=== PATIENT | male | born 1960 | race Caucasian/White ===

== ENCOUNTER 2019-12-07 00:26 | Emergency (ER) | payer OTHER ==
--- NOTE | 2019-12-07 00:54 | ED Physician Documentation ---
PD HPI BACK PAIN - Stated complaint Stated Complaint: BACK PX - Chief complaint Chief Complaint: Back Pain - History obtained from History obtained from: Patient - History of Present Illness Timing - onset: Yesterday Timing - details: Gradual onset Location: Lower, Right Quality: Pain, Spasm Associated symptoms: No: Fever, Weakness, Numbness, Incontinent of urine, Unable to urinate, Hematuria, Incontinent of stool Improves with: Rest Worsened by: Movement (distinctly worse with movement) Contributing factors: No: Trauma, Cancer, IVDA Similar symptoms before: Has not had sx before Recently seen: Not recently seen - Additional information Additional information: was doing yardwork 2 days ago with some heavy lifting involved, woke yesterday morning with right low back pain that radiates down right buttock to right knee, occasionally around lateral aspect of thigh. Pain is distinctly worse with movement. Review of Systems Constitutional: denies: Fever, Chills, Sweats GI: denies: Abdominal Pain, Nausea, Vomiting, Constipation, Diarrhea : denies: Dysuria, Frequency, Unable to Void, Incontinent, Hematuria Skin: denies: Rash Musculoskeletal: reports: Back pain Neurologic: denies: Focal weakness, Numbness PD PAST MEDICAL HISTORY - Past Medical History Cardiovascular: None Respiratory: None GI: None : None Psych: None Musculoskeletal: None Derm: None - Past Surgical History Past Surgical History: No - Present Medications Home Medications: Ambulatory Orders Medication Instructions Recorded Confirmed Multivitamin [Multivitamins] 1 each PO 10/05/12 10/05/12 Cyclobenzaprine [Flexeril] 10 mg PO TID PRN #20 tablet 12/07/19 Meloxicam [Mobic] 7.5 mg PO BID PRN #20 tablet 12/07/19 Oxycodone HCl/Acetaminophen 1 - 2 each PO Q6H PRN #14 tablet 12/07/19 [Percocet 5-325 mg Tablet] - Allergies Allergies/Adverse Reactions: Allergies Allergy/AdvReac Type Severity Reaction Status Date / Time No Known Drug Allergies Allergy Verified 10/05/12 03:49 - Social History Does the pt smoke?: No Smoking Status: Never smoker Does the pt drink ETOH?: Yes - Immunizations Immunizations are current?: Yes PD ED PE NORMAL - Vitals Vital signs reviewed: Yes - General General: Alert and oriented X 3, No acute distress, Well developed/nourished - Back Back: No CVA TTP, No spinal TTP - Derm Derm: Normal color, Warm and dry, No rash - Extremities Extremities: No edema - Neuro Neuro: No motor deficit (RLE: 5/5 dorsi/plantarflexion, 2+/4 DTR patella without clonus) Results - Vitals Vitals: Vital Signs - 24 hr 12/07/19 12/07/19 00:37 01:24 Temperature 36.4 C L Heart Rate 62 67 Respiratory 20 18 Rate Blood Pressure 154/85 H 133/82 H O2 Saturation 99 100 Oxygen O2 Source Room air PD MEDICAL DECISION MAKING - ED course Complexity details: reviewed results, re-evaluated patient, considered differential, d/w patient Departure - Departure Disposition: Home, Self Care Clinical Impression: Sciatica Qualifiers: Laterality: right Qualified Code(s): M54.31 - Sciatica, right side Condition: Good Instructions: ED Sciatica Follow-Up: Jerardo Riley MD [Primary Care Provider] - Within 1 week Prescriptions: Cyclobenzaprine [Flexeril] 10 mg PO TID PRN #20 tablet PRN Reason: Spasms Meloxicam [Mobic] 7.5 mg PO BID PRN #20 tablet PRN Reason: Pain Oxycodone HCl/Acetaminophen [Percocet 5-325 mg Tablet] 1 - 2 each PO Q6H PRN #14 tablet PRN Reason: pain Discharge Date/Time: 12/07/19 01:32
[2019-12-07] MEDS ORDERED: KETOROLAC 60 MG/2 ML VIAL IM STA (01:14)
[2019-12-07] MEDS ORDERED: HYDROcod/ACET 5/325 Prepack 4 PO STA (01:14)
[2019-12-07] MEDS ORDERED: CYCLOBENZAPRINE 10 MG Prepack 2 PO PRN (01:14)
[2019-12-07 01:25] VITALS: BP 133/82
== END 2019-12-07 01:32 | disposition home or self-care (01) ==
LOC: ED 00:26
DX: M54.31 Sciatica, right side (principal)
CPT/HCPCS: 96372; 99283; 99284

== ENCOUNTER 2019-12-07 05:39 | Emergency (ER) | payer OTHER ==
--- NOTE | 2019-12-07 05:45 | ED Physician Documentation ---
PD HPI BACK PAIN - Stated complaint Stated Complaint: BACK PX - History obtained from History obtained from: Patient - History of Present Illness Timing - onset: Yesterday Timing - duration: Days Timing - details: Gradual onset, Constant, Waxing and waning Pain level now: 8 Location: Lower, Right Quality: Pain Improves with: Rest Worsened by: Movement Recently seen: Emergency Dept - Additional information Additional information: T+R from this ED few hours ago for same, was given vicodin and flexeril take- home and toradol IM in ED. He c/o back pain that started yesterday, right lower back radiates to right buttock and right posterolateral thigh, distinctly worse with movement. Returns due to worsening pain that is now concentrated in area of right anterolateral thigh. Denies fever, numbness, weakness, loss of bowel/bladder continence. Review of Systems Constitutional: denies: Fever, Chills, Sweats Skin: denies: Rash Musculoskeletal: reports: Back pain. denies: Extremity swelling Neurologic: denies: Focal weakness, Numbness PD PAST MEDICAL HISTORY - Past Medical History Cardiovascular: None Respiratory: None GI: None : None Psych: None Musculoskeletal: None Derm: None - Past Surgical History Past Surgical History: No - Present Medications Home Medications: Ambulatory Orders Medication Instructions Recorded Confirmed Multivitamin [Multivitamins] 1 each PO 10/05/12 10/05/12 Cyclobenzaprine [Flexeril] 10 mg PO TID PRN #20 tablet 12/07/19 Meloxicam [Mobic] 7.5 mg PO BID PRN #20 tablet 12/07/19 Oxycodone HCl/Acetaminophen 1 - 2 each PO Q6H PRN #14 tablet 12/07/19 [Percocet 5-325 mg Tablet] diazePAM [Diazepam] 5 mg PO TID PRN #14 tablet 12/07/19 - Allergies Allergies/Adverse Reactions: Allergies Allergy/AdvReac Type Severity Reaction Status Date / Time No Known Drug Allergies Allergy Verified 12/07/19 05:44 - Social History Does the pt smoke?: No Smoking Status: Never smoker Does the pt drink ETOH?: Yes - Immunizations Immunizations are current?: Yes PD ED PE NORMAL - Vitals Vital signs reviewed: Yes - General General: Alert and oriented X 3, No acute distress (NAD at rest but appears to have painful distress with movement involving lower back and/or RLE), Well developed/nourished - Abdomen Abdomen: Soft, Non tender - Back Back: No CVA TTP, No spinal TTP - Derm Derm: Normal color, Warm and dry, No rash - Extremities Extremities: No deformity, No tenderness to palpate, Normal ROM s pain, No edema - Neuro Neuro: No motor deficit (5/5 RLE extension (psoas, at hip), as well as dorsi/plantarflexion. 2+/4 right DTR patella), No sensory deficit Results - Vitals Vitals: Vital Signs - 24 hr 12/07/19 12/07/19 12/07/19 05:45 06:34 07:33 Temperature 37.1 C Heart Rate 65 62 59 L Respiratory 20 16 20 Rate Blood Pressure 134/73 H 137/85 H 143/84 H O2 Saturation 97 97 100 Oxygen O2 Source Room air - Rads (name of study) lumbar xrays Radiology: Prelim report reviewed, See rad report PD MEDICAL DECISION MAKING - ED course Complexity details: reviewed results, re-evaluated patient, considered differential, d/w patient ED course: adequate relief with IM dilaudid. Given dose of valium PO prior to d/c to augment affect of dilaudid as well as for skeletal muscle relaxant effect. Departure - Departure Disposition: 01 Home, Self Care Clinical Impression: Sciatica Condition: Good Instructions: ED Sciatica Follow-Up: KRISSY SKINNER MD [Primary Care Provider] - Within 1 week Prescriptions: diazePAM [Diazepam] 5 mg PO TID PRN #14 tablet PRN Reason: Spasms Discharge Date/Time: 12/07/19 07:37
[2019-12-07] MEDS ORDERED: DEXAMETHASONE 10 MG/ML VIAL PO STA (05:58)
[2019-12-07] MEDS ORDERED: HYDROmorphone 1 MG/ML CARPUJECT IM STA (05:58)
[2019-12-07] MEDS ORDERED: CHERRY SYRUP 10 ML UDC PO ONE (05:58)
[2019-12-07] MEDS ORDERED: diazePAM 5 MG TABLET PO STA (07:22)
[2019-12-07 07:33] VITALS: BP 143/84
--- NOTE | 2019-12-07 08:17 | XRAY Report ---
PROCEDURE: Lumbar Spine 2 View INDICATIONS: low back pain TECHNIQUE: 3 views of the lumbar spine were acquired. COMPARISON: None. FINDINGS: Bones: 5 [id number] vertebrae are present. There is normal bony alignment. No vertebral body compression fractures. No suspicious bony lesions. Moderate L1-L2 and L5-S1 degenerative disc disea se. Mild L2-L3 degenerative disease. Soft tissues: Overlying bowel gas pattern is normal. No suspicious soft tissue calcifications. IMPRESSION: 1. Multilevel degenerative disc disease. 2. No fracture. No acute osseous lesion. If there is continued clinical concern for pathology, then M RI should be considered for further evaluation. Reviewed by: Serena Mitchell MD, PhD on 12/07/2019 8:15 AM PDT Approved by: Serena Mitchell MD, PhD on 12/07/2019 8:15 AM PDT Station ID: [id number]
== END 2019-12-07 07:37 | disposition home or self-care (01) ==
LOC: ED 05:39
DX: M54.31 Sciatica, right side (principal)
CPT/HCPCS: 72100; 96372; 99283; 99284; A9270; J1170

== ENCOUNTER 2019-12-24 07:12 | Outpatient (CLI) | payer OTHER ==
[2019-12-24] MEDS ORDERED: GADOBUTROL 10 MMOL/10 ML VIAL ONE (07:28)
[2019-12-24] MEDS ORDERED: GADOBUTROL 10 MMOL/10 ML VIAL IVP ONE (08:09)
--- NOTE | 2019-12-26 09:56 | MRI Report ---
PROCEDURE: Lumbar Spine W/WO INDICATIONS: LOW BACK PAIN CONTRAST: IV CONTRAST: Gadavist ml: 8 TECHNIQUE: Noncontrast sagittal T1 spin echo and T2 fast spin echo, sagittal STIR, axial T1 and T2 fast spin ech o through the lumbar spine. In cases with scoliosis, additional coronal T2 fast spin echo may be per formed. After the administration of contrast, sagittal and axial T1 spin echo with fat saturation th rough the lumbar spine. COMPARISON: None. FINDINGS: Image quality: Excellent. Alignment and curvature: Straightening of usual lumbar lordosis. Otherwise in normal alignment. Verte bral body heights maintained of the abdomen Schmorl nodes at the inferior L1 endplate. Marrow: No suspicious focal marrow signal abnormality. Mild edematous marrow signal change at the opp osing L5-S1 endplates. No abnormal enhancement in the vertebral column. Spinal cord: Normal position and appearance of the conus. No abnormal enhancement within the intradur al compartment. Regional soft tissues: Prevertebral and paraspinous soft tissues demonstrate no abnormal signal or en hancement. T12-L1: No spinal canal or neural foraminal stenosis. L1-L2: No spinal canal or neural foraminal stenosis. L2-L3: No spinal canal or neural foraminal stenosis. L3-L4: There is diffuse disc bulge which flattens the ventral thecal sac but produces no mass effect upon the traversing L4 nerve roots. There is a disc extrusion within the right foraminal and far late ral zones producing severe neural foraminal stenosis with displacement and compression/flattening of the exiting right L3 nerve root. There is also mass effect upon the right L3 nerve lateral to the for amen. No left neural foraminal stenosis. L4-L5: Disc bulge flattens the ventral thecal sac without mass effect upon the traversing L5 nerve roots. Foraminal components of the disc bulge combine with facet hypertrophy to produce mild bilatera l neural foraminal stenosis. L5-S1: Diffuse disc bulge and a superimposed broad-based posterior disc protrusion. This material a buts but does not significantly displace the descending S1 nerve roots bilaterally. Mild bilateral ne ural foraminal stenosis related to foraminal components of the disc bulge. IMPRESSION: Large disc extrusion at L3-L4 and within the right foraminal and far lateral zones producing severe r ight neural foraminal stenosis with compression and probable impingement of the right L3 nerve root. Correlate for any corresponding radicular symptoms. Reviewed by: Kadeem Bro MD on 12/26/2019 9:55 AM PDT Approved by: Kadeem Bro MD on 12/26/2019 9:55 AM PDT Station ID: [id number]
== END 2019-12-24 07:13 | disposition home or self-care (01) ==
LOC: DI 07:12
PROVIDERS: ATTEND Student in an Organized Health Care Education/Training Program
DX: M51.35 Other intervertebral disc degeneration, thoracolumbar region (principal); M51.26 Other intervertebral disc displacement, lumbar region
CPT/HCPCS: 72158; A9585

== ENCOUNTER 2020-02-03 13:32 | Outpatient (CLI) | payer OTHER ==
--- NOTE | 2020-02-03 15:40 | XRAY Report ---
PROCEDURE: Lumbar Spine w/Flex/Ext INDICATIONS: LUMBAR RADICULOPATHY TECHNIQUE: 3 views of the lumbar spine acquired. COMPARISON: 12/07/2019. FINDINGS: Bones: 5 [id number] vertebrae are present. There is normal bony alignment. Degenerative endpl ate changes throughout lumbar spine is seen more prominent at L1-2 and L5-S1 levels No vertebral body compression fractures. No suspicious bony lesions. Soft tissues: Overlying bowel gas pattern is normal. No suspicious soft tissue calcifications. Flexion/extension: There is decreased range of motion, with preserved lumbar spine alignment. IMPRESSION: Degenerative disc disease in lumbar spine as above. No acute compression fracture or spo ndylolisthesis. Decreased range of motion with preserved lumbar spine alignment. Reviewed by: Valdemar Umanzor MD on 02/03/2020 3:38 PM PDT Approved by: Valdemar Umanzor MD on 02/03/2020 3:38 PM PDT Station ID: [id number]
== END 2020-02-03 13:33 | disposition home or self-care (01) ==
LOC: DI 13:32
PROVIDERS: ATTEND Neurological Surgery
DX: M51.16 Intervertebral disc disorders with radiculopathy, lumbar region (principal)
CPT/HCPCS: 72114

== ENCOUNTER 2020-11-07 11:23 | Day surgery (SDC) | payer OTHER ==
[~2020-11-07 11:23] MED LIST: ceFAZolin 2 GM/50 ML 2 GM/50 ML BAG IV ONE
[2020-11-07] MEDS ORDERED: LACTATED RINGERS 1,000 ML IV ONE ×2 (11:27→15:16)
[2020-11-07] MEDS ORDERED: BUPIVACAINE 0.25% PF 30 ML VIAL ONE (12:48)
[2020-11-07] MEDS ORDERED: MIDAZOLAM 2 MG/2 ML VIAL ONE (13:04)
[2020-11-07] MEDS ORDERED: fentaNYL 100 MCG/2 ML VIAL ONE ×2 (13:04→14:30)
--- NOTE | 2020-11-07 13:10 | ANESTHESIA ---
Pre-Anesthesia VS, & Labs - Diagnosis right inguinal hernia - Procedure laparoscopic right inguinal hernia repair Vital Signs: Temp Pulse Resp BP Pulse Ox 36 C L 55 L 12 139/73 H 99 11/07/20 11:28 11/07/20 11:28 11/07/20 11:28 11/07/20 11:28 11/07/20 11:28 Height: 6 ft 3 in Weight (kg): 95.3 kg Body Mass Index: 26.2 BMI Classification: Overweight - NPO >8 hours - Lab Results Lab results reviewed: Yes Home Medications and Allergies Home Medications: Ambulatory Orders Multivitamin 1 each PO DAILY 11/02/20 Multivitamin 1 each PO DAILY 11/02/20 Allergies/Adverse Reactions: Allergies Allergy/AdvReac Type Severity Reaction Status Date / Time No Known Drug Allergies Allergy Verified 12/07/19 05:44 Anes History & Medical History - Anesthetic History Anesthesia Complications: reports: No previous complications Family history of Anesthesia Complications: Denies Family history of Malignant Hyperthermia: Denies - Medical History Cardiovascular: reports: None Pulmonary: reports: None Gastrointestinal: reports: None Urinary: reports: None Musculoskeletal: reports: Chronic back pain Endocrine/Autoimmune: reports: None Skin: reports: None Smoking Status: Never smoker - Surgical History General: reports: Colonoscopy Exam General: Alert, Oriented x3, Cooperative, No acute distress Dental: WNL Mouth Openin Fingerbreadth Respiratory: Lungs clear, Normal breath sounds, No respiratory distress, No accessory muscle use Cardiovascular: Regular rate, Normal S1, Normal S2, No murmurs Plan Anesthesia Type: General Consent for Procedure(s) Verified and Reviewed: Yes Code Status: Attempt Resuscitation ASA classification: 1-Healthy patient Is this case an emergency?: No
[2020-11-07] MEDS ORDERED: ROCURONIUM 50 MG/5 ML VIAL ONE ×2 (13:20→14:23)
[2020-11-07] MEDS ORDERED: LIDOCAINE-MPF 2% 5 ML VIAL ONE (13:20)
[2020-11-07] MEDS ORDERED: PROPOFOL 200 MG/20 ML VIAL IVP ONE (13:20)
[2020-11-07] MEDS ORDERED: ACETAMINOPHEN 1,000 MG/100 ML 100 ML IV ONE (13:52)
[2020-11-07] MEDS ORDERED: DEXAMETHASONE 4 MG/ML VIAL ONE (13:54)
[2020-11-07] MEDS ORDERED: ONDANSETRON 4 MG/2 ML VIAL ONE (13:54)
[2020-11-07] MEDS ORDERED: ePHEDrine 50 MG/ML VIAL IVP ONE (13:59)
[2020-11-07] MEDS ORDERED: BUPIVACAINE 0.25% PF 30 ML VIAL SUBQ ONE (14:07)
[2020-11-07] MEDS ORDERED: NEOSTIGMINE 1 MG/1 ML 10 ML MDV ONE (14:56)
[2020-11-07] MEDS ORDERED: GLYCOPYRROLATE 1 MG/5 ML VIAL ONE (14:56)
[2020-11-07] MEDS ORDERED: ONDANSETRON 4 MG/2 ML VIAL IVP PRN ×2 (15:22→15:58)
--- NOTE | 2020-11-07 15:32 | OPERATIVE REPORT ---
Operative Report - General Procedure Date: 11/07/20 Planned Procedure: laparoscopic right inguinal hernia Pre-Op Diagnosis: right inguinal hernia Procedure Performed: laparoscopic right inguinal hernia Post Op Diagnosis: indirect inguinal hernia - Procedure Note Primary Surgeon: anamika dietz Anesthesia Technique: General ET tube, Local Pathology: none Estimated Blood Loss (mL): 0 Drain/Tube Type: Other (none) Indications: painful hernia bulge Findings: as above Complications: none - Other Other Information/Narrative: The patient was prepped identified brought to the operating room and placed in supine position. General endotracheal anesthesia was induced. Quintal compression devices and Longo catheter were placed. He was prepped and draped in a sterile fashion and given preoperative antibiotics. A 2 and half centimeter incision was made in the infrumbilical area. Dissection proceeded down to the fascia. The fascia was incised just right lateral of midline. The preperitoneal space was developed with gentle blunt retraction with finger dissection. A Antonio trocar was placed and secured with 3 interrupted 0 Vicryl sutures. A 30 degree scope was used. The preperitoneal space was further developed with the use of the scope. In midline 2 5 mm trochars were placed. The superficial epigastric vessels were kept along the cord structures. The pubic tubercle and Tomas's ligament was defined. Cord structures were defined. A pocket was created large enough for a large preformed mesh. Patient had a large indirect inguinal hernia. The indirect hernia sac was mobilized off from the cord structures and further towards the retroperitoneum. The indirect hernia sac was tied with an Endoloop. Preperitoneal adipose tissue was removed from the internal ring. Large preformed mesh was then placed. It was secured with a CapSure tacker at the pubic tubercle Tomas's ligament area and under the rectus musculature. Trochars were removed under direct vision and CO2 evacuated. Fascia at the infraumbilical site was closed with a total of 4-0 Vicryl sutures. Skin was closed with running or buried interrupted 4-0 Monocryl. Dressings were applied. Longo catheter was removed. He was awakened and brought to recovery in good condition.
[2020-11-07] MEDS ORDERED: METOCLOPRAMIDE 10 MG/2 ML VIAL IVP PRN (15:58)
[2020-11-07] MEDS ORDERED: HYDROmorphone 0.5 MG/0.5 ML SYRINGE IVP PRN (15:58)
[2020-11-07] MEDS ORDERED: ATROPINE ABBOJECT 1 MG/10 ML SYRINGE IVP PRN (15:58)
[2020-11-07] MEDS ORDERED: fentaNYL 100 MCG/2 ML VIAL IVP PRN (15:58)
[2020-11-07] MEDS ORDERED: NALOXONE 0.4 MG/ML VIAL IVP PRN (15:58)
[2020-11-07] MEDS ORDERED: MORPHINE 2 MG/ML CARPUJECT IVP PRN (15:58)
[2020-11-07] MEDS ORDERED: ePHEDrine 50 MG/ML VIAL IVP PRN (15:58)
[2020-11-07] MEDS ORDERED: LACTATED RINGERS 1,000 ML IV SCH (16:00)
[2020-11-07] MEDS ORDERED: HYDROcod/ACETAM 5/325 MG TABLET ONE (16:10)
--- NOTE | 2020-11-07 16:15 | ANESTHESIA POST OP EVALUATION ---
Anesthesia Post Eval - Post Anesthesia Eval Vitals: Last Vital Signs Temp 36.5 C 11/07/20 15:53 Pulse 61 11/07/20 15:53 Resp 15 11/07/20 15:53 BP 123/64 11/07/20 15:53 Pulse Ox 99 11/07/20 15:53 CV Function Including HR & BP: Stable Pain Control: Satisfactory Nausea & Vomiting: Negative Mental Status: Baseline Respiratory Status: Airway Patent Hydration Status: Satisfactory Anesthesia Complications: None
[2020-11-07 16:32] VITALS: BP 122/70
== END 2020-11-07 11:24 | disposition home or self-care (01) ==
LOC: SDS 11:23
PROVIDERS: ATTEND Surgery
DX: K40.90 Unilateral inguinal hernia, without obstruction or gangrene, not specified as recurrent (principal)
CPT/HCPCS: 49505; A9270; C1781; J0131; J0690; J7120